=== PATIENT | male | born 1960 | race Caucasian/White ===

== ENCOUNTER 2019-02-13 14:57 | Observation (INO) | payer BC ==
[~2019-02-13] VITALS: Ht 175.3 cm; Wt 133.8 kg
[2019-02-13 15:12] VITALS: BP 154/98
[2019-02-13 15:15] VITALS: BP 154/98
[2019-02-13] MEDS ORDERED: ELIQUIS PO (15:23)
[2019-02-13] MEDS ORDERED: FUROSEMIDE40 MG PO (15:23)
[2019-02-13 15:26] VITALS: BP 154/98
[2019-02-13] MEDS ORDERED: ZOLPIDEM TARTRATE 5 MG TAB PO PRN (16:00)
[2019-02-13] MEDS: APIXABAN 5 MG TABLET PO SCH (17:35)
--- NOTE | 2019-02-13 18:31 | Consultation ---
DATE OF CONSULTATION: Pulmonary Critical Care Consultation HISTORY OF PRESENT ILLNESS: The patient is a 59-year-old man. He has a history of pulmonary emboli, diagnosed in [place], [place], 3 weeks ago. The patient required hospitalization for this and was placed on Eliquis. The patient's hospitalization was further complicated by some elevated right-sided heart pressures and some diastolic dysfunction. He had a cardiac catheterization, which was normal. He went home on Lasix in addition to his Eliquis. The patient was working in [place], when he injured his foot. [facility]. After going from the waiting room to the exam room, he noticed dizziness and perioral numbness. He was subsequently sent to the freestanding Emergency Department. They performed a CT scan, which was within normal limits. They performed blood work and admitted the patient for observation. The patient notes that his dizziness and perioral numbness has since resolved. He did not have any associated chest pain. PAST MEDICAL HISTORY: 1. Pulmonary emboli as noted above. 2. No prior history of lung problems. 3. Diastolic heart failure. SOCIAL HISTORY: The patient never smoked. He is not a drinker. He does dip tobacco. FAMILY HISTORY: Noncontributory. ALLERGIES: THERE ARE NO KNOWN DRUG ALLERGIES. REVIEW OF SYSTEMS: The patient is afebrile. He is not having any headache. He has no neck pain. He does not complain of chest pain. He is not having shortness of breath. He has no abdominal pain. He has no nausea or vomiting. He does note some pain in his foot. PHYSICAL EXAMINATION: VITAL SIGNS: The patient is afebrile. The vital signs are stable. HEENT: Shows no facial swelling or erythema. The oropharynx is normal. LYMPHATIC: Shows no submandibular, cervical, or supraclavicular adenopathy. CARDIAC: Reveals a regular rate and rhythm with a normal S1, S2. There are no murmurs or rubs. LUNGS: Auscultation of lungs shows clear breath sounds bilaterally. There is no wheezing. ABDOMEN: Soft, nontender. EXTREMITIES: Examination of extremities shows some tenderness along the lateral aspect of the left foot. He has no focal neurological complaints. RADIOGRAPHIC DATA: CT scan of the head from the emergency department was negative. IMPRESSION: 1. Transient dizziness and presyncope, that has improved. 2. Subacute pulmonary emboli. 3. Chronic diastolic heart failure. PLAN: 1. Continue Eliquis. 2. Monitor on telemetry. 3. Complete IV fluids, started in the emergency department. 4. Venous duplex of the lower extremities. MD CHERELLE Gao/LORENZO /[id number]
[2019-02-13 20:05] VITALS: BP 147/80
[2019-02-13 20:27] VITALS: BP 162/95
[2019-02-14] VITALS (9 sets, daily range): BP systolic 121–158; BP diastolic 64–89
[2019-02-14 03:42] LABS: BASOPHILS % 0.5 % (0.0-1.0); EOSINOPHILS # (AUTO) 0.3 (0.0-0.4); HEMATOCRIT 42.4 % (38.2-49.6); HEMOGLOBIN 13.9 g/dL (14.0-18.0); LYMPHOCYTES # (AUTO) 1.9 (1.0-3.2); LYMPHOCYTES % 25.4 % (18.0-39.1); MEAN CORPUSCULAR HEMOGLOBIN 30.8 pg (28-32); MEAN CORPUSCULAR HGB CONC 32.8 g/dL (31-35); MONOCYTES # (AUTO) 0.5 (0.2-0.8); MONOCYTES % 6.4 % (4.4-11.3); NEUTROPHILS # (AUTO) 4.8 (2.1-6.9); NEUTROPHILS % 63.4 % (38.7-80.0); PLATELET COUNT 204 x10e3/uL (140-360); RED BLOOD COUNT 4.51 x10e6/uL (4.3-5.7); RED CELL DISTRIBUTION WIDTH 13.4 % (11.7-14.4)
[2019-02-14 04:02] LABS: ALANINE AMINOTRANSFERASE 20 IU/L (0-55); ALBUMIN 3.4 g/dL (3.5-5.0); ALBUMIN/GLOBULIN RATIO 1.2 (0.8-2.0); ALKALINE PHOSPHATASE 112 IU/L (40-150); ANION GAP 10.1 mmol/L (8-16); BLOOD UREA NITROGEN 17 mg/dL (7-26); BUN/CREATININE RATIO 21 (6-25); CALCIUM 9.1 mg/dL (8.4-10.2); CARBON DIOXIDE 30 mmol/L (22-29); CHLORIDE 100 mmol/L (98-107); CREATININE, SERUM 0.81 mg/dL (0.72-1.25); EST GLOMERULAR FILTRATION RATE > 60 ML/MIN (60-); GLUCOSE 105 mg/dL (74-118); POTASSIUM 4.1 mmol/L (3.5-5.1); SODIUM 136 mmol/L (136-145)
--- NOTE | 2019-02-14 07:00 | NUR ---
BEDSIDE SHIFT REPORT RECEIVED FROM THE TRUCK WASHER RN. PT DENIES NEEDS AT THIS TIME
[2019-02-14] MEDS: APIXABAN 5 MG TABLET PO SCH ×2 (08:18→16:33)
[2019-02-14 15:17] LABS: CHOL/HDL RATIO 5.3 (3.9-4.7)
--- NOTE | 2019-02-14 15:55 | Progress Note ---
DATE: SUBJECTIVE: The patient is afebrile. He has no further dizziness. He is not complaining of headache. He denies dyspnea. PHYSICAL EXAMINATION: VITAL SIGNS: The patient is afebrile. The blood pressure is 134/67 and saturation is 95%. HEENT: Shows no facial swelling or erythema. CARDIAC: Reveals regular rate and rhythm with a normal S1, S2. There are no murmurs or rubs. LUNGS: Auscultation of lungs reveals clear breath sounds bilaterally. There is no wheezing. ABDOMEN: Soft, nontender. There is no rebound or guarding. EXTREMITIES: Show no leg edema or calf tenderness. There is no cyanosis or clubbing. SKIN: Shows no rashes. NEUROLOGICAL: Shows no focal abnormalities. IMPRESSION: 1. Transient dizziness and lightheadedness. 2. Subacute pulmonary emboli. PLAN: 1. The patient is to go home. 2. He should continue on his Eliquis. MD CHERELLE Gao/LORENZO /[id number]
--- NOTE | 2019-02-14 17:36 | NUR ---
PT OFF UNIT FOR PROCEDURE IN SAFE CONDITION.
--- NOTE | 2019-02-14 17:53 | NUR ---
PT BACK TO UNIT. PT REFUSED MRI PER RADIOLOGY.
--- NOTE | 2019-02-14 18:30 | NUR ---
PAGED MASTER AND INFORMED PRELIMINARY REPORT ON RADIOLOGY. PT REFUSED MRI. INFORMED THE SAME TO TIERRA THAO. NO NEW ORDERS RECEIVED.
--- NOTE | 2019-02-14 19:00 | NUR ---
BEDSIDE SHIFT REPORT GIVEN TO THE WOUND TREATMENT RN RN. PT DENIED FURTHER NEEDS.
--- NOTE | 2019-02-14 19:20 | NUR ---
SERGIO TO D/C PT PER TIERRA THAO
--- NOTE | 2019-02-14 19:25 | NUR ---
VERIFIED D/C ORDER WITH MASTER. NO D/C TODAY PER MASTER EVENT STAFF MEMBER
--- NOTE | 2019-02-14 19:30 | NUR ---
PATIENT RECEIVED. PATIENT IS RESTING IN BED, AAOX3. RESP EVEN AND UNLABORED. NO ACUTE DISTRESS NOTED AT THIS TIME. CALL LIGHT WITHIN REACH. INSTRUCT TO CALL FOR ASSISTANCE. BED LOW/LOCKED. CONTINUE TO MONITOR CLOSELY
[2019-02-15 02:50] LABS: BASOPHILS % 0.2 % (0.0-1.0); EOSINOPHILS # (AUTO) 0.3 (0.0-0.4); EOSINOPHILS % 4.1 % (0.0-6.0); HEMATOCRIT 42.6 % (38.2-49.6); HEMOGLOBIN 14.2 g/dL (14.0-18.0); LYMPHOCYTES # (AUTO) 2.3 (1.0-3.2); LYMPHOCYTES % 27.1 % (18.0-39.1); MEAN CORPUSCULAR HEMOGLOBIN 31.5 pg (28-32); MEAN CORPUSCULAR HGB CONC 33.3 g/dL (31-35); MEAN CORPUSCULAR VOLUME 94.5 fL (81-99); MONOCYTES # (AUTO) 0.6 (0.2-0.8); MONOCYTES % 6.8 % (4.4-11.3); NEUTROPHILS # (AUTO) 5.2 (2.1-6.9); NEUTROPHILS % 61.6 % (38.7-80.0); PLATELET COUNT 192 x10e3/uL (140-360); RED BLOOD COUNT 4.51 x10e6/uL (4.3-5.7); RED CELL DISTRIBUTION WIDTH 13.2 % (11.7-14.4)
[2019-02-15 03:14] LABS: ANION GAP 10.9 mmol/L (8-16); BLOOD UREA NITROGEN 16 mg/dL (7-26); BUN/CREATININE RATIO 22 (6-25); CARBON DIOXIDE 28 mmol/L (22-29); CHLORIDE 98 mmol/L (98-107); CREATININE, SERUM 0.74 mg/dL (0.72-1.25); EST GLOMERULAR FILTRATION RATE > 60 ML/MIN (60-); GLUCOSE 101 mg/dL (74-118); POTASSIUM 3.9 mmol/L (3.5-5.1); SODIUM 133 mmol/L (136-145)
[2019-02-15 03:50] VITALS: BP 128/77
[2019-02-15] MEDS ORDERED: LIPITOR20 MG PO (05:33)
--- NOTE | 2019-02-15 06:41 | NUR ---
PATIENT SIGNED DISCHARGE PAPERWORK. ASSESSMENT COMPLETED. D/C IV. PATIENT IS WAITING FOR HIS RIDE AT THIS TIME
--- NOTE | 2019-02-15 07:00 | NUR ---
RCD PT AT BED PT IS ALERT AND ORIENTED RESTING ON BED NO SIGNS OF ANY DISTRESS NOTED IV PATENT BED LOW AND LOCKED CALL LIGHT IN REACH
--- NOTE | 2019-02-15 07:25 | NUR ---
PT WENT HOME IN SAFE CONDITION WITH HIS FRIEND
--- NOTE | 2019-02-16 04:38 | Discharge Summary ---
ADMISSION DIAGNOSES: 1. Dizziness with numbness. 2. Morbid obesity. 3. History of pulmonary embolism. DISCHARGE DIAGNOSES: 1. Dizziness with numbness. 2. Morbid obesity. 3. History of pulmonary embolism. 4. Rule out cerebrovascular accident, rule out transient ischemic attack/hyperlipidemia. HISTORY: PE. SURGICAL HISTORY: Right rotator cuff surgery, bilateral hip replacement, left foot surgery and right arm tumor removal. FAMILY HISTORY: The patient's brother had diabetes. The patient's mom had cancer. SOCIAL HISTORY: Occasional alcohol use. HOSPITAL COURSE: A 59-year-old male with recent left foot injury, was found to have a PE shortly after the foot injury. While following up with his capacity analyst for the PE and blood pressure, the patient began having dizziness and numbness around his lips and bilateral hand tingling. The patient was on Eliquis due to the PE. On admission, CT of the head was negative. Echo showed an EF of 55% to 60%.. Bilateral carotid Doppler was negative. EKG showed normal sinus. MRI of the brain was ordered, but the patient refused. The patient's cholesterol came back at 191 and LDL was 137. The patient was given a prescription for aspirin and Lipitor. He will be discharged home and follow up with primary care and Cardiology in 1 to 2 weeks. The patient understands discharge instructions and agrees to plan. Vital signs stable. Patient afebrile. Dictated by Bessie Higgins NP MD DIEGO Narvaez/LORENZO /[id number]
== END 2019-02-15 07:25 | disposition home or self-care (01) ==
LOC: MED/SURG2 14:57
PROVIDERS: ADMIT Internal Medicine; ATTEND Internal Medicine
DX: R42 Dizziness and giddiness (principal); I26.99 Other pulmonary embolism without acute cor pulmonale; R20.0 Anesthesia of skin; R20.2 Paresthesia of skin; Z83.3 Family history of diabetes mellitus; Z80.9 Family history of malignant neoplasm, unspecified; Z96.643 Presence of artificial hip joint, bilateral; E66.01 Morbid (severe) obesity due to excess calories; Z68.41 Body mass index [BMI] 40.0-44.9, adult; Z79.01 Long term (current) use of anticoagulants; Z91.048 Other nonmedicinal substance allergy status; Z72.0 Tobacco use; R55 Syncope and collapse; I50.32 Chronic diastolic (congestive) heart failure
CPT/HCPCS: 36415 ×2; 80048; 80053; 80061; 83880; 85025 ×2; 93306; 93880; 93970; G0378 ×3